=== PATIENT | male | born 1955 | race Caucasian/White ===

== ENCOUNTER 2017-02-17 20:57 | Observation (INO) | payer OTHER ==
[~2017-02-17] VITALS: Ht 172.7 cm; Wt 69.1 kg
[2017-02-17 22:33] LABS: EOSINOPHIL (%) 1.2 % (0-5); EOSINOPHIL COUNT 0.1 K/uL (0-0.3); HEMATOCRIT 39.8 % (38.0-50.0); IMMATURE GRANULOCYTE (%) 0.1 % (0.0-0.7); MCH 31.8 PG (29.0-34.0); MCHC 35.2 G/DL (30.0-36.0); MCV 90.5 FL (86-99); MEAN PLAT.VOLUME 8.9 uM^3 (9.0-12.4); MONOCYTE (%) 11.1 % (3-12); MONOCYTE COUNT 0.8 K/uL (0-0.8); NEUTROPHIL (%) 72.8 % (45-76); PLATELET COUNT 353 K/uL (156-360); RBC DIS.WIDTH-CV 11.8 % (11.8-14.6); RBC DIS.WIDTH-SD 39.3 % (39-53); WHITE BLOOD COUNT 6.8 K/uL (4.1-10.2)
[2017-02-17 22:42] LABS: CHLORIDE 96 mEq/L (99-109); POTASSIUM 3.4 mEq/L (3.7-5.4); SODIUM 134 mEq/L (136-147)
[2017-02-17 22:43] LABS: MAGNESIUM 2.1 mg/dL (1.3-2.7)
[2017-02-17] MEDS ORDERED: TEGRETOL200 MG PO ×2 (22:43→22:45)
[2017-02-17] MEDS ORDERED: ZYRTEC10 M2 PO (22:43)
[2017-02-17] MEDS ORDERED: ATARAX,VISTARIL25 MG PO (22:44)
[2017-02-17] MEDS ORDERED: LOVASTATIN20 MG PO (22:44)
[2017-02-17] MEDS ORDERED: ZESTRIL20 MG PO (22:44)
[2017-02-17] MEDS ORDERED: HYDROCHLOROTHIA25 MG PO (22:44)
[2017-02-17 22:45] LABS: GLUCOSE 118 mg/dL (70-99)
[2017-02-17 22:46] LABS: ANION GAP 9 MEQ/L (2-14)
[2017-02-17] MEDS ORDERED: BENTYL20 MG PO (22:46)
[2017-02-17] MEDS ORDERED: COLACE100 MG PO (22:46)
[2017-02-17 22:47] LABS: TOTAL BILIRUBIN 0.4 mg/dL (0.0-1.0)
[2017-02-17 22:48] LABS: ALKALINE PHOSPHATASE 56 IU/L (3-129)
[2017-02-17 22:49] LABS: GFR ESTIMATE (CALCULATED) > 59 mL/min/
[2017-02-17 22:50] LABS: UREA NITROGEN (BUN) 17 mg/dL (9-23)
[2017-02-18] MEDS ORDERED: SODIUM CHLORIDE1 G1 PO (01:43)
[2017-02-18 05:13] VITALS: BP 155/78
[2017-02-18 07:33] VITALS: BP 160/77
[2017-02-18 08:17] LABS: Estimated Average Glucose 103 mg/dL (70-123); HEMOGLOBIN A1c (GLYCOHEMOGLOB) 5.2 % HGB (Below 5.7)
[2017-02-18 08:36] LABS: ANION GAP 7 MEQ/L (2-14); CHLORIDE 98 MEQ/L (99-109); POTASSIUM 3.5 MEQ/L (3.7-5.4); SAMPLE HEMOLYSIS CHECK 0; SAMPLE ICTERIC CHECK 0; SAMPLE LIPEMIA CHECK 0; SODIUM 136 MEQ/L (136-147)
[2017-02-18 08:42] LABS: GFR ESTIMATE (CALCULATED) > 59 mL/min/; GLUCOSE 108 mg/dL (70-99); HDL CHOLESTEROL 51 MG/DL (Desirable>=40); LDL CHOLESTEROL 118 mg/dL (Desirable<100); NON-HDL CHOLESTEROL 131 mg/dL (Desirable<160); TOTAL CHOLESTEROL 182 mg/dL (Desirable<200); TRIGLYCERIDES 65 MG/DL (Normal: <150); UREA NITROGEN (BUN) 16 mg/dL (9-23)
[2017-02-18 11:21] VITALS: BP 130/74
[2017-02-18] MEDS ORDERED: ASPIR 8181 M1 PO (13:07)
[2017-02-18 13:11] LABS: ADD MIUA? YES; BILIRUBIN NEGATIVE; BLOOD NEGATIVE; COLOR YELLOW ((YELLOW)); GLUCOSE (STRIP) NEGATIVE; KETONES 5; LEUKOCYTES TRACE; NITRITE NEGATIVE; PROTEIN (STRIP) NEGATIVE; SPECIFIC GRAVITY 1.035 (1.000-1.030); UROBILINOGEN 0.2 MG/DL (0.2-1.0)
[2017-02-18 13:41] LABS: BACTERIA NONE SEEN /HPF; EPITHELIAL CELLS RARE /HPF; MUCUS 2+ /LPF; WHITE BLOOD CELLS 0-5 /HPF (0-5)
== END 2017-02-18 15:25 | disposition home or self-care (01) ==
LOC: EME 20:57 → RME 20:57 → EDOF 02-18 02:16 → ENRESERV 02-18 02:18 → 5WEST 02-18 04:03
PROVIDERS: Hospitalist; Physician Assistant
DX: G45.9 Transient cerebral ischemic attack, unspecified (principal); R11.2 Nausea with vomiting, unspecified; R10.9 Unspecified abdominal pain; I10 Essential (primary) hypertension; Z88.1 Allergy status to other antibiotic agents; Z91.030 Bee allergy status; F79 Unspecified intellectual disabilities; E87.6 Hypokalemia; E78.5 Hyperlipidemia, unspecified; E87.1 Hypo-osmolality and hyponatremia
CPT/HCPCS: 70450; 74177; 80048; 80053; 80061; 81003; 83036; 83605; 83735; 85025; 93005; 93306; 93880; G0378; J1650; J2405; J7030; S0028

== ENCOUNTER 2017-04-27 10:19 | Observation (INO) | payer OTHER ==
[~2017-04-27] VITALS: Ht 172.7 cm; Wt 70.0 kg
[~2017-04-27 10:19] MED LIST: ASPIR 8181 M1 PO; ATARAX,VISTARIL25 MG PO; BENTYL20 MG PO; COLACE100 MG PO; HYDROCHLOROTHIA25 MG PO; LOVASTATIN20 MG PO; SODIUM CHLORIDE1 G1 PO; TEGRETOL200 MG PO; ZESTRIL20 MG PO; ZYRTEC10 M2 PO
[2017-04-27 10:53] LABS: EOSINOPHIL (%) 1.6 % (0-5); EOSINOPHIL COUNT 0.1 K/uL (0-0.3); HEMATOCRIT 39.7 % (38.0-50.0); IMMATURE GRANULOCYTE (%) 0.2 % (0.0-0.7); INSTRUMENT ABS NEUTROPHIL CT 4.4 K/uL; LYMPHOCYTE COUNT 0.6 K/uL (1.0-2.8); MCH 31.7 PG (29.0-34.0); MCHC 34.8 G/DL (30.0-36.0); MCV 91.1 FL (86-99); MEAN PLAT.VOLUME 8.7 uM^3 (9.0-12.4); MONOCYTE (%) 8.5 % (3-12); MONOCYTE COUNT 0.5 K/uL (0-0.8); NEUTROPHIL COUNT 4.4 K/uL (1.8-6.4); PLATELET COUNT 350 K/uL (156-360); RBC DIS.WIDTH-CV 11.6 % (11.8-14.6); RED BLOOD COUNT 4.36 M/uL (4.00-5.50); WHITE BLOOD COUNT 5.7 K/uL (4.1-10.2)
[2017-04-27 11:14] LABS: TROP-I INTERPRETATION NEGATIVE; TROPONIN-I < 0.01 ng/mL (0.0-0.30)
[2017-04-27 11:21] LABS: CHLORIDE 96 mEq/L (99-109); POTASSIUM 4.4 mEq/L (3.7-5.4); SODIUM 131 mEq/L (136-147)
[2017-04-27 11:23] LABS: GLUCOSE 99 mg/dL (70-99)
[2017-04-27 11:24] LABS: ANION GAP 11 MEQ/L (2-14)
[2017-04-27 11:25] LABS: TOTAL BILIRUBIN 0.5 mg/dL (0.0-1.0)
[2017-04-27 11:27] LABS: ALKALINE PHOSPHATASE 64 IU/L (3-129); GFR ESTIMATE (CALCULATED) > 59 mL/min/
[2017-04-27 11:28] LABS: UREA NITROGEN (BUN) 13 mg/dL (9-23)
[2017-04-27 12:19] LABS: HDL CHOLESTEROL 49 MG/DL (Desirable>=40); LDL CHOLESTEROL 68 mg/dL (Desirable<100); NON-HDL CHOLESTEROL 76 mg/dL (Desirable<160); TOTAL CHOLESTEROL 125 mg/dL (Desirable<200); TRIGLYCERIDES 41 MG/DL (Normal: <150)
[2017-04-27 12:33] LABS: Estimated Average Glucose 105 mg/dL (70-123); HEMOGLOBIN A1c (GLYCOHEMOGLOB) 5.3 % HGB (Below 5.7)
[2017-04-27] MEDS ORDERED: NORVASC5 MG PO (12:49)
[2017-04-27] MEDS ORDERED: MOTRIN400 MG PO (12:49)
[2017-04-27] MEDS ORDERED: TYLENOL REGULA325 MG PO (12:50)
[2017-04-27] MEDS ORDERED: BENADRYL25 MG PO (12:50)
[2017-04-27] MEDS ORDERED: LIPITOR40 MG PO (12:50)
[2017-04-27] MEDS ORDERED: MILK OF MAGN PO (12:51)
[2017-04-27] MEDS ORDERED: BACTROBAN OINTM22 GM TP (12:51)
[2017-04-27] MEDS ORDERED: SILTUSSIN DM C473 ML PO (12:52)
[2017-04-27] MEDS ORDERED: PEPTIC REL262 MG/15 PO (12:52)
[2017-04-27] MEDS ORDERED: NASAL DECONGEST30 MG PO (12:52)
[2017-04-27] MEDS ORDERED: KENALOG,ARISTOC80 G1 TP (12:53)
[2017-04-27 13:32] VITALS: BP 169/87
[2017-04-27 17:14] VITALS: BP 171/87
[2017-04-27 19:09] VITALS: BP 154/82
[2017-04-28 00:11] VITALS: BP 148/73
[2017-04-28 03:17] LABS: ADD MIUA? NO; BILIRUBIN NEGATIVE; BLOOD NEGATIVE; COLOR YELLOW ((YELLOW)); GLUCOSE (STRIP) NEGATIVE; KETONES NEGATIVE; LEUKOCYTES NEGATIVE; NITRITE NEGATIVE; PROTEIN (STRIP) NEGATIVE; SPECIFIC GRAVITY 1.019 (1.000-1.030); UCUL ADDED? NO; UROBILINOGEN 0.2 MG/DL (0.2-1.0)
[2017-04-28 04:42] VITALS: BP 155/74
[2017-04-28 08:13] LABS: ANION GAP 9 MEQ/L (2-14); CHLORIDE 98 MEQ/L (99-109); GFR ESTIMATE (CALCULATED) > 59 mL/min/; GLUCOSE 98 mg/dL (70-99); SODIUM 132 MEQ/L (136-147); UREA NITROGEN (BUN) 12 mg/dL (9-23)
[2017-04-28 08:33] VITALS: BP 171/82
[2017-04-28 11:39] VITALS: BP 164/77
== END 2017-04-28 15:01 | disposition home or self-care (01) ==
LOC: EME 10:19 → EDOF 12:23 → 5WEST 12:23 → EDOF 12:23 → ENRESERV 12:24 → 5WEST 13:21
PROVIDERS: Emergency Medicine; Hospitalist
DX: R47.81 Slurred speech (principal); I10 Essential (primary) hypertension; G80.9 Cerebral palsy, unspecified; F79 Unspecified intellectual disabilities; G40.909 Epilepsy, unspecified, not intractable, without status epilepticus; E78.5 Hyperlipidemia, unspecified; E87.1 Hypo-osmolality and hyponatremia; M54.5 Low back pain
CPT/HCPCS: 70450; 71020; 72100; 80048; 80053; 80061; 80156; 81003; 83036; 84484; 85025; 93005; 99281; 99285; G0378; J1650; J7030